=== PATIENT | male | born 1940 | race Caucasian/White ===

== ENCOUNTER 2017-10-06 13:42 | Emergency (ER) | payer MEDICARE, OTHER ==
[2017-10-06] MEDS ORDERED: TETANUS/DIPHTHERIA TOXOID [ADULT] 0.5 ML VIAL IM ONE (14:47)
== END 2017-10-06 15:00 | disposition home or self-care (01) ==
LOC: EDH 13:42
DX: S61.247A Puncture wound with foreign body of left little finger without damage to nail, initial encounter (principal); I25.10 Atherosclerotic heart disease of native coronary artery without angina pectoris; I10 Essential (primary) hypertension; Z88.0 Allergy status to penicillin; W45.8XXA Other foreign body or object entering through skin, initial encounter; Y93.89 Activity, other specified; Y92.89 Other specified places as the place of occurrence of the external cause; Y99.8 Other external cause status
CPT/HCPCS: 90471; 90714

== ENCOUNTER → 2018-12-20 | Outpatient (CLI) | payer OTHER ==
[~2018-12-20] MED LIST: AMIO100T PO; BRIM5DRO OP; DARI15TA PO; EZET10 PO; FERR325T22 PO; INDO50CA12 PO; LATA7.5D OP; PANT40TA25 PO; RAMI10CA69 PO; RIVA20TA PO; SULF500T8 PO
== END | disposition home or self-care (01) ==
LOC: SHCH 11:48
PROVIDERS: ATTEND Internal Medicine Cardiovascular Disease
DX: I65.23 Occlusion and stenosis of bilateral carotid arteries (principal)
CPT/HCPCS: 93880

== ENCOUNTER → 2018-12-21 | Outpatient (CLI) | payer OTHER | END | disposition home or self-care (01) | LOC: OIH 13:10 | PROVIDERS: ATTEND Internal Medicine Cardiovascular Disease | DX: I51.7 Cardiomegaly (principal) | CPT/HCPCS: 93306 ==

== ENCOUNTER → 2018-12-25 | Outpatient (CLI) | payer OTHER ==
[~2018-12-25] VITALS: Ht 177.8 cm; Wt 109.8 kg
[~2018-12-25] MED LIST changes: +REGADENOSON 0.4 MG/5 ML PF SYG IVP SCH
== END | disposition home or self-care (01) ==
LOC: SHCH 07:50
PROVIDERS: ATTEND Internal Medicine Cardiovascular Disease
DX: I25.9 Chronic ischemic heart disease, unspecified (principal); I25.10 Atherosclerotic heart disease of native coronary artery without angina pectoris; I48.0 Paroxysmal atrial fibrillation; I10 Essential (primary) hypertension
CPT/HCPCS: 78452; 93017; 96374; A9500 ×2; J2785

== ENCOUNTER 2019-02-05 05:30 | Day surgery (SDC) | payer OTHER ==
[2019-02-01 09:48] VITALS: BP 165/95
[2019-02-01 09:51] LABS: BASOPHILS % (AUTO) 1.2 % (0.0-5.0); EOSINOPHILS % (AUTO) 4.6 % (0.0-8.0); HEMATOCRIT 41.6 % (42-54); LYMPHOCYTES % (AUTO) 21.1 % (21.0-51.0); MEAN CORPUSCULAR HEMOGLOBIN 32.8 pg (27.0-33.0); MEAN CORPUSCULAR HGB CONC 33.4 g/dL (32.0-36.0); MEAN CORPUSCULAR VOLUME 98.2 fL (79-99); MONOCYTES % (AUTO) 6.6 % (3.0-13.0); NEUTROPHILS % (AUTO) 66.5 % (40.0-77.0); PLATELET COUNT (AUTO) 321 K/uL (130-400); RED BLOOD CELL COUNT(AUTO) 4.23 MIL/uL (4.50-6.20)
[2019-02-01 10:04] LABS: INR 1.38 (0.85-1.15); PARTIAL THROMBOPLASTIN TIME 46.3 SEC (26.3-35.5); PROTHROMBIN TIME 14.4 SEC (9.6-11.6)
[2019-02-01 10:05] LABS: POTASSIUM 4.6 mmol/L (3.5-5.1)
[2019-02-01 10:43] LABS: APPEARANCE,URINE Clear (CLEAR); BILIRUBIN,URINE Negative (NEGATIVE); COLOR,URINE Yellow (YELLOW); GLUCOSE, URINE (UA) Negative (NEGATIVE); KETONES,URINE Negative (NEGATIVE); LEUKOCYTE ESTERASE ,URINE Small (NEGATIVE); NITRATE,URINE Negative (NEGATIVE); OCCULT BLOOD,URINE Negative (NEGATIVE); PH,URINE 7.5 (5.0-8.0); PROTEIN,URINE Negative (NEGATIVE)
[2019-02-01 11:08] LABS: BACTERIA,URINE Rare /HPF (None Seen); RBC,URINE None Seen /HPF (0-1); SQUAMOUS EPITHELIAL CELL,UR 0-2 /HPF (0-2); WBC,URINE 0-1 /HPF (0-1)
--- NOTE | 2019-02-04 12:07 | NUR ---
LABS ABNORMAL PTT, AND CHEST XRAY REPORTED TO SUSANNA MAGUIRE, NO FURTHER ORDERS GIVEN, OK TO PROCEED WITH PROCEDURE
[~2019-02-05] VITALS: Ht 172.7 cm; Wt 114.1 kg
[2019-02-05] VITALS (12 sets, daily range): BP systolic 128–163; BP diastolic 59–73
[~2019-02-05 05:30] MED LIST changes: +ACETAMINOPHEN 325 MG TAB PO PRN; +ASPI-555 PO; -BRIM5DRO OP; +COLC0.6C3 PO; -FERR325T22 PO; +FURO-151 PO; -INDO50CA12 PO; -LATA7.5D OP; -REGADENOSON 0.4 MG/5 ML PF SYG IVP SCH; +SODIUM CHLORIDE 0.9% 500ML 500 ML IV SCH
--- NOTE | 2019-02-05 06:20 | NUR ---
PATIENT ARRIVED PATIENT ARRIVED ON UNIT ACCOMPANIED BY SPOUSE. PATIENT AAOX3, RESPIRATIONS UNLABORED, NO C/O PAIN AT THIS TIME. PATIENT ORIENTED TO HOSPITAL, CALL MAGANA IN REACH, SIDE RAILS UP X2.
[2019-02-05] MEDS ORDERED: SODIUM CHLORIDE 0.9% 1000ML 1,000 ML IV ONE (07:49)
[2019-02-05] MEDS ORDERED: LIDOCAINE HCL 2% 20ML ONE (10:10)
[2019-02-05] MEDS ORDERED: IOHEXOL 350 MG/ML 100ML INFUS..BTL IV ONE ×2 (10:10→11:15)
[2019-02-05] MEDS ORDERED: SODIUM BICARB 50MEQ 50ML VIAL ONE (10:10)
[2019-02-05] MEDS ORDERED: NITROGLYCERIN 5 MG/ML 10 ML VIAL IV ONE (10:10)
[2019-02-05] MEDS ORDERED: IOHEXOL-350 50ML VIAL IV ONE (10:10)
--- NOTE | 2019-02-05 10:15 | NUR ---
PATIENT TRANSFERRED PATIENT TAKEN TO [employer] [employer] BY ELMO URIAS. PROCEDURE EXPLAINED TO PATIENT BY NURSE, PATIENT VERBALIZED UNDERSTANDING. AT BEDSIDE AND WAITING IN ROOM FOR PATIENT TO RETURN.
[2019-02-05] MEDS ORDERED: MIDAZOLAM HCL 1 MG/ML 2ML VIAL ONE (10:32)
[2019-02-05] MEDS ORDERED: MEPERIDINE-PF 25 MG/ML SYG ONE (10:32)
[2019-02-05] MEDS ORDERED: SODIUM CHLORIDE 0.9% 1000ML 1,000 ML IV SCH (11:34)
[2019-02-05] MEDS ORDERED: ACETAMINOPHEN-CODEINE 300/30MG TAB PO PRN ×2 (11:45)
--- NOTE | 2019-02-05 11:55 | NUR ---
PATIENT RETURNED: PATIENT RETURNED FROM [facility] [employer] VIA BED, BROUGHT BY ELMO MELO AND CHANTEL GALINDO RN. PATIENT AAOX3, RESPIRATIONS UNLABORED. DRESSING TO RIGHT GROIN IS DRY AND INTACT, SOFT AND NONTENDER.
--- NOTE | 2019-02-05 15:55 | NUR ---
HAND OFF REPORT REPORT GIVEN TO DIANDRA SPIVEY, USING SBAR. CATH SITE ASSESSED AND HAND OFF COMMUNICATION REPORT GIVEN AT BEDSIDE. ALL QUESTIONS AN CONCERNS ADDRESSED.
--- NOTE | 2019-02-05 18:10 | NUR ---
Pt discharged home, tolerating fluids/solid food, voiding well, ambulating well. Denies any severe pain, nausea or dizziness. Dressing to right femoral remains dry and intact. Small dime size red blood on dressing, but site soft, non-tender s any active bleeding from artery. Pt and spouse reminded of routine and emergency care of cath site, pt and spouse report understanding, no further questions at this time.
== END 2019-02-05 18:10 | disposition home or self-care (01) ==
LOC: DAH 05:30
PROVIDERS: ATTEND Internal Medicine Cardiovascular Disease
DX: I25.10 Atherosclerotic heart disease of native coronary artery without angina pectoris (principal); R94.39 Abnormal result of other cardiovascular function study; I48.91 Unspecified atrial fibrillation; F41.9 Anxiety disorder, unspecified; Z88.0 Allergy status to penicillin; Z88.8 Allergy status to other drugs, medicaments and biological substances; Z95.1 Presence of aortocoronary bypass graft; Z79.82 Long term (current) use of aspirin; Z79.899 Other long term (current) drug therapy; Z79.01 Long term (current) use of anticoagulants; Z72.89 Other problems related to lifestyle; Z98.890 Other specified postprocedural states; Z82.49 Family history of ischemic heart disease and other diseases of the circulatory system
CPT/HCPCS: 36415; 71045; 80048; 81001; 85025; 85610; 85730; 93005; 93459; 99156; 99157; A4606; C1760; C1769; C1894; J1644; J2175; J2250; J3490; J7030; Q9967

== ENCOUNTER → 2021-10-13 | Outpatient (CLI) | payer MEDICARE ==
[~2021-10-13] MED LIST changes: -ACETAMINOPHEN 325 MG TAB PO PRN; -ASPI-555 PO; +ASPI-556 PO; -EZET10 PO; +EZET10TA13 PO; -PANT40TA25 PO; +PANT40TA54 PO; -SODIUM CHLORIDE 0.9% 500ML 500 ML IV SCH
== END | disposition home or self-care (01) ==
LOC: SHCH 09:08
PROVIDERS: ATTEND Internal Medicine Cardiovascular Disease
DX: I35.0 Nonrheumatic aortic (valve) stenosis (principal); I11.9 Hypertensive heart disease without heart failure; I87.2 Venous insufficiency (chronic) (peripheral); I25.10 Atherosclerotic heart disease of native coronary artery without angina pectoris; E78.5 Hyperlipidemia, unspecified; E66.9 Obesity, unspecified; Z95.1 Presence of aortocoronary bypass graft
CPT/HCPCS: 93306; 93970

== ENCOUNTER → 2021-12-01 | Outpatient (CLI) | payer MEDICARE | END | disposition home or self-care (01) | LOC: OIH 10:06 | PROVIDERS: ATTEND Internal Medicine Cardiovascular Disease | DX: I87.2 Venous insufficiency (chronic) (peripheral) (principal) | CPT/HCPCS: 93925 ==

== ENCOUNTER 2022-08-29 23:54 | Emergency (ER) | payer MEDICARE ==
[~2022-08-29 23:54] MED LIST changes: -COLC0.6C3 PO; -DARI15TA PO; -FURO-151 PO; -PANT40TA54 PO
[2022-08-30 02:58] VITALS: BP 137/74
== END 2022-08-30 03:28 | disposition home or self-care (01) ==
LOC: EDH 23:54
DX: M25.552 Pain in left hip (principal); I10 Essential (primary) hypertension; Z79.82 Long term (current) use of aspirin; Z88.0 Allergy status to penicillin; Z88.8 Allergy status to other drugs, medicaments and biological substances; Z95.1 Presence of aortocoronary bypass graft
CPT/HCPCS: 73502; 73552